=== PATIENT | male | born 1940 | race Caucasian/White ===

== ENCOUNTER 2019-12-16 13:57 | Outpatient (CLI) | payer OTHER ==
--- NOTE | 2019-12-16 14:39 | RAD ---
THREE VIEWS LUMBAR SPINE: HISTORY: Pain. FINDINGS: Lateral neutral, lateral extension and lateral flexion views demonstrate 5 lumbar-type vertebrae. Mul tilevel degenerative disc disease with loss of disc space height and osteophyte formation. No definite fracture. Vacuum disc phenomenon at L4-L5 and L5-S1. Atherosclerosis of the aorta is noted. Scattered air-fluid levels are identified. Correlate clinically for obstruction. Spondylolisthesis: L4-L5: Neutral 3.8 mm of anterolisthesis; extension 3.4 mm of anterolisthesis; flexion 6.8 mm of ante rolisthesis. L2-L3: Neutral 3.5 mm of retrolisthesis; extension 4.5 mm of retrolisthesis; flexion 4.1 mm of retrol isthesis. IMPRESSION: 1. Spondylolisthesis and degenerative changes as detailed above. 2. Scattered air-fluid levels. There is evidence of previous abdominal surgery. Correlate clinically for bowel obstruction with a supine and upright abdomen radiograph. CODE T Transcribed Date/Time: 12/16/2019 2:45 PM
== END 2019-12-16 13:58 | disposition home or self-care (01) ==
LOC: TBSIIMAG 13:57
PROVIDERS: ATTEND Neurological Surgery
DX: M51.26 Other intervertebral disc displacement, lumbar region (principal); M43.16 Spondylolisthesis, lumbar region; M47.816 Spondylosis without myelopathy or radiculopathy, lumbar region; Z98.890 Other specified postprocedural states
CPT/HCPCS: 72100

== ENCOUNTER 2020-12-09 09:05 | Outpatient (CLI) | payer OTHER | END 2020-12-09 09:06 | disposition home or self-care (01) | LOC: TBSIIMAG 09:05 | PROVIDERS: ATTEND Neurological Surgery | DX: M47.26 Other spondylosis with radiculopathy, lumbar region (principal); M43.16 Spondylolisthesis, lumbar region | CPT/HCPCS: 72100; 72148 ==

== ENCOUNTER 2021-01-04 11:00 | Inpatient (IN) | payer OTHER ==
[2021-01-06 12:07] VITALS: BMI 22.9
[2021-01-07] MEDS ORDERED: Thrombin 5000 UNITS/5 ML VIAL ONE ×2 (06:10→10:44)
[2021-01-07] MEDS ORDERED: EPINEPHrine 1 MG/ML AMP ONE (06:10)
[2021-01-07] MEDS ORDERED: Bupivacaine PF 0.5% 30 ML VIAL ONE (06:10)
[2021-01-07] MEDS ORDERED: Fentanyl 250 MCG/5 ML VIAL ONE (06:29)
[2021-01-07] MEDS ORDERED: Phenylephrine 10 MG/ML VIAL ONE (06:57)
[2021-01-07] MEDS ORDERED: Acetaminophen 325 MG TAB PO PRN (07:08)
[2021-01-07] MEDS ORDERED: tiZANidine HCl 4 MG TAB PO PRN (07:08)
[2021-01-07] MEDS ORDERED: diphenhydrAMINE 25 MG CAP PO PRN (07:08)
[2021-01-07] MEDS ORDERED: Morphine 2 MG/ML VIAL SLOW IVP PRN (07:08)
[2021-01-07] MEDS ORDERED: Promethazine HCl 25 MG/ML VIAL IM PRN ×2 (07:08→13:03)
[2021-01-07] MEDS ORDERED: Promethazine 25 MG TAB PO PRN (07:08)
[2021-01-07] MEDS ORDERED: Scopolamine 1.5 mg/72 hour Patch TD PRN (07:08)
[2021-01-07] MEDS ORDERED: traMADol HCl 50 MG TAB PO PRN (07:08)
[2021-01-07] MEDS ORDERED: Mag-Al 1200 mg/1200 mg/30 ML UDCUP PO PRN (07:08)
[2021-01-07] MEDS ORDERED: Tamsulosin HCl 0.4 MG CAP PO PRN (07:08)
[2021-01-07] MEDS ORDERED: Ondansetron ODT 8 MG TAB PO PRN (07:12)
[2021-01-07] MEDS ORDERED: Rocuronium Bromide 10 MG/ML (10ML VIAL) ONE (10:24)
[2021-01-07] MEDS ORDERED: ePHEDrine 50 MG/ML VIAL ONE (10:24)
[2021-01-07] MEDS ORDERED: Lidocaine 1% PF 5 ML VIAL ONE (10:24)
[2021-01-07] MEDS ORDERED: PROPOFOL 200 MG/20 ML VIAL ONE (10:24)
[2021-01-07] MEDS ORDERED: PHENYLEPHRINE-NS 100 MCG/ML 10 ML SYRINGE ONE (10:24)
[2021-01-07] MEDS ORDERED: Dexamethasone 20 MG/5 ML VIAL ONE (10:24)
[2021-01-07] MEDS ORDERED: Glycopyrrolate 0.2 MG/ML 5 ML SYRINGE ONE (10:24)
[2021-01-07 11:57] LABS: Hemoglobin 15.6 g/dL (14.0-18.0)
[2021-01-07] MEDS ORDERED: SUGAMMADEX SODIUM 500 MG/5 ML VIAL ONE (12:02)
[2021-01-07] MEDS ORDERED: Promethazine HCl 25 MG/ML VIAL SLOW IVP PRN (13:03)
[2021-01-07] MEDS ORDERED: Ondansetron HCl/PF 4 MG/2 ML Vial IVP PRN (13:03)
[2021-01-07] MEDS ORDERED: Fentanyl 100 MCG/2 ML VIAL ONE (13:17)
[2021-01-07] MEDS ORDERED: CEFAZOLIN 2 GM in Premix Bag 1 BAG IVPB SCH (15:00)
[2021-01-07] MEDS: DULoxetine 60 MG CAP PO SCH (17:24)
[2021-01-07] MEDS: Ferrous Sulfate 325 MG TAB PO SCH ×2 (17:24→21:13)
[2021-01-07] MEDS: Potassium Chloride 20 MEQ TAB PO SCH (17:25)
[2021-01-07] MEDS: Terbinafine 250 MG TAB PO SCH (17:25)
[2021-01-07] MEDS: CEFAZOLIN 2 GM in Premix Bag 1 BAG IVPB SCH ×2 (17:32→23:37)
[2021-01-07] MEDS: Sodium Chloride 0.9% 1,000 ML IV SCH ×2 (17:33→21:14)
[2021-01-07] MEDS: Mometasone 100 MCG/Formoterol 5 MCG 120 PUFF INHALER INH SCH (19:34)
[2021-01-07] MEDS: Atorvastatin Calcium 20 MG TAB PO SCH (21:14)
[2021-01-07] MEDS: diphenhydrAMINE 25 MG CAP PO SCH (21:14)
[2021-01-07] MEDS: HYDROcodone/Acetaminophen 5/325 mg Tablet PO PRN (23:40)
[2021-01-08 06:05] LABS: Hemoglobin 11.8 g/dL (14.0-18.0); Mean Corpuscular HGB CONC 33.3 g/dL (32.0-36.0); Mean Corpuscular Hemoglobin 29.7 pg (27.0-31.0); Mean Corpuscular Volume 89.3 fL (78.0-98.0); Mean Platelet Volume 8.2 fL (7.4-10.4); Platelet Count 236 thou/uL (130-400); RBC Distribution Width 12.5 % (11.5-14.5); Red Blood Cell (RBC) Count 3.96 mill/uL (4.70-6.10); White Blood Cell (WBC) Count 16.2 thou/uL (4.8-10.8)
[2021-01-08] MEDS: HYDROcodone/Acetaminophen 5/325 mg Tablet PO PRN (06:19)
[2021-01-08 06:49] LABS: Anion Gap 13 mmol/L (10-20); BUN (Urea Nitrogen) 16 mg/dL (8.4-25.7); Calc. Creatinine Clearance 52 mL/min (70-130); Calcium 7.9 mg/dL (7.8-10.44); Carbon Dioxide 26 mmol/L (23-31); Chloride 101 mmol/L (98-107); Glucose 114 mg/dL (83-110); Sodium 135 mmol/L (136-145)
[2021-01-08] MEDS: Mometasone 100 MCG/Formoterol 5 MCG 120 PUFF INHALER INH SCH ×2 (08:09→19:32)
[2021-01-08] MEDS: DULoxetine 60 MG CAP PO SCH (08:27)
[2021-01-08] MEDS: Terbinafine 250 MG TAB PO SCH (08:27)
[2021-01-08] MEDS: Ferrous Sulfate 325 MG TAB PO SCH ×2 (08:27→21:27)
[2021-01-08] MEDS: Potassium Chloride 20 MEQ TAB PO SCH (08:28)
[2021-01-08] MEDS: Sodium Chloride 0.9% 1,000 ML IV SCH ×2 (12:49→20:35)
[2021-01-08] MEDS ORDERED: CEFAZOLIN 2 GM in Premix Bag 1 BAG IVPB SCH (18:00)
[2021-01-08] MEDS: Atorvastatin Calcium 20 MG TAB PO SCH (21:26)
[2021-01-08] MEDS: diphenhydrAMINE 25 MG CAP PO SCH ×2 (21:26→22:23)
[2021-01-09 05:30] LABS: #Eosinphils 0.2 thou/uL (0.0-0.7); #Lymphocytes 1.6 thou/uL (1.20-3.40); #Monocytes 0.7 thou/uL (0.11-0.59); #Neutrophils 7.1 thou/uL (1.40-6.50); %Basophils 0.2 % (0.0-1.0); %Eosinophils 2.5 % (0.0-10.0); %Lymphocytes 16.3 % (21.0-51.0); %Monocytes 7.3 % (0.0-10.0); %Neutrophils 73.7 % (42.0-75.0); Hemoglobin 9.8 g/dL (14.0-18.0); Mean Corpuscular HGB CONC 33.7 g/dL (32.0-36.0); Mean Corpuscular Hemoglobin 30.3 pg (27.0-31.0); Mean Corpuscular Volume 90.1 fL (78.0-98.0); Mean Platelet Volume 8.2 fL (7.4-10.4); Platelet Count 145 thou/uL (130-400); RBC Distribution Width 12.1 % (11.5-14.5); Red Blood Cell (RBC) Count 3.24 mill/uL (4.70-6.10); White Blood Cell (WBC) Count 9.7 thou/uL (4.8-10.8)
[2021-01-09 05:49] LABS: Anion Gap 10 mmol/L (10-20); BUN (Urea Nitrogen) 13 mg/dL (8.4-25.7); Calc. Creatinine Clearance 74 mL/min (70-130); Calcium 7.8 mg/dL (7.8-10.44); Carbon Dioxide 27 mmol/L (23-31); Chloride 103 mmol/L (98-107); Glucose 113 mg/dL (83-110); Sodium 136 mmol/L (136-145)
[2021-01-09] MEDS: Mometasone 100 MCG/Formoterol 5 MCG 120 PUFF INHALER INH SCH ×2 (07:22→20:03)
[2021-01-09] MEDS: DULoxetine 60 MG CAP PO SCH (08:29)
[2021-01-09] MEDS: Terbinafine 250 MG TAB PO SCH (08:29)
[2021-01-09] MEDS: Ferrous Sulfate 325 MG TAB PO SCH ×2 (08:29→21:53)
[2021-01-09] MEDS: Potassium Chloride 20 MEQ TAB PO SCH (08:29)
[2021-01-09] MEDS: Sodium Chloride 0.9% 1,000 ML IV SCH (14:38)
[2021-01-09] MEDS: Atorvastatin Calcium 20 MG TAB PO SCH (21:52)
[2021-01-09] MEDS: diphenhydrAMINE 25 MG CAP PO SCH (21:53)
[2021-01-10] MEDS: Sodium Chloride 0.9% 1,000 ML IV SCH ×2 (00:14→15:15)
[2021-01-10] MEDS: Mometasone 100 MCG/Formoterol 5 MCG 120 PUFF INHALER INH SCH ×2 (07:07→19:45)
[2021-01-10] MEDS: Ferrous Sulfate 325 MG TAB PO SCH ×2 (08:07→20:24)
[2021-01-10] MEDS: Terbinafine 250 MG TAB PO SCH (08:07)
[2021-01-10] MEDS: DULoxetine 60 MG CAP PO SCH (08:07)
[2021-01-10] MEDS: Potassium Chloride 20 MEQ TAB PO SCH (08:08)
[2021-01-10] MEDS: Atorvastatin Calcium 20 MG TAB PO SCH (20:24)
[2021-01-10] MEDS: diphenhydrAMINE 25 MG CAP PO SCH (20:24)
[2021-01-11] MEDS: Sodium Chloride 0.9% 1,000 ML IV SCH (05:43)
[2021-01-11 06:00] LABS: #Eosinphils 0.4 thou/uL (0.0-0.7); #Lymphocytes 1.5 thou/uL (1.20-3.40); #Monocytes 0.6 thou/uL (0.11-0.59); #Neutrophils 6.2 thou/uL (1.40-6.50); %Basophils 0.2 % (0.0-1.0); %Eosinophils 4.8 % (0.0-10.0); %Lymphocytes 16.8 % (21.0-51.0); %Monocytes 7.3 % (0.0-10.0); %Neutrophils 70.9 % (42.0-75.0); Hemoglobin 10.3 g/dL (14.0-18.0); Mean Corpuscular HGB CONC 33.8 g/dL (32.0-36.0); Mean Corpuscular Hemoglobin 30.5 pg (27.0-31.0); Mean Corpuscular Volume 90.3 fL (78.0-98.0); Mean Platelet Volume 8.2 fL (7.4-10.4); Platelet Count 228 thou/uL (130-400); RBC Distribution Width 12.1 % (11.5-14.5); Red Blood Cell (RBC) Count 3.37 mill/uL (4.70-6.10); White Blood Cell (WBC) Count 8.8 thou/uL (4.8-10.8)
[2021-01-11 06:30] LABS: Anion Gap 11 mmol/L (10-20); BUN (Urea Nitrogen) 8 mg/dL (8.4-25.7); Calc. Creatinine Clearance 82 mL/min (70-130); Calcium 8.2 mg/dL (7.8-10.44); Carbon Dioxide 28 mmol/L (23-31); Chloride 101 mmol/L (98-107); Glucose 101 mg/dL (83-110); Potassium 3.9 mmol/L (3.5-5.1); Sodium 136 mmol/L (136-145)
[2021-01-11] MEDS: Mometasone 100 MCG/Formoterol 5 MCG 120 PUFF INHALER INH SCH ×2 (07:01→18:30)
[2021-01-11] MEDS: Potassium Chloride 20 MEQ TAB PO SCH (08:16)
[2021-01-11] MEDS: Ferrous Sulfate 325 MG TAB PO SCH ×2 (08:16→19:48)
[2021-01-11] MEDS: DULoxetine 60 MG CAP PO SCH (08:16)
[2021-01-11] MEDS: Terbinafine 250 MG TAB PO SCH (08:17)
[2021-01-11] MEDS: Atorvastatin Calcium 20 MG TAB PO SCH (19:48)
[2021-01-11] MEDS: diphenhydrAMINE 25 MG CAP PO SCH (19:48)
[2021-01-12] MEDS: Mometasone 100 MCG/Formoterol 5 MCG 120 PUFF INHALER INH SCH ×2 (06:41→18:12)
[2021-01-12] MEDS: DULoxetine 60 MG CAP PO SCH (09:03)
[2021-01-12] MEDS: Potassium Chloride 20 MEQ TAB PO SCH (09:03)
[2021-01-12] MEDS: Terbinafine 250 MG TAB PO SCH (09:03)
[2021-01-12] MEDS: Ferrous Sulfate 325 MG TAB PO SCH ×2 (09:03→20:13)
[2021-01-12] MEDS: Atorvastatin Calcium 20 MG TAB PO SCH (20:13)
[2021-01-12] MEDS: diphenhydrAMINE 25 MG CAP PO SCH (20:14)
[2021-01-13] MEDS: Mometasone 100 MCG/Formoterol 5 MCG 120 PUFF INHALER INH SCH ×2 (07:10→18:30)
[2021-01-13] MEDS: Potassium Chloride 20 MEQ TAB PO SCH (08:57)
[2021-01-13] MEDS: Ferrous Sulfate 325 MG TAB PO SCH ×2 (08:58→20:07)
[2021-01-13] MEDS: DULoxetine 60 MG CAP PO SCH (08:58)
[2021-01-13] MEDS: Terbinafine 250 MG TAB PO SCH (08:58)
[2021-01-13] MEDS: Atorvastatin Calcium 20 MG TAB PO SCH (20:07)
[2021-01-13] MEDS: diphenhydrAMINE 25 MG CAP PO SCH (20:07)
[2021-01-14 06:21] LABS: Hemoglobin 10.9 g/dL (14.0-18.0)
[2021-01-14 07:51] VITALS: BP 104/70; TEMP 97.8
[2021-01-14] MEDS: DULoxetine 60 MG CAP PO SCH (08:16)
[2021-01-14] MEDS: Potassium Chloride 20 MEQ TAB PO SCH (08:16)
[2021-01-14] MEDS: Terbinafine 250 MG TAB PO SCH (08:16)
[2021-01-14] MEDS: Ferrous Sulfate 325 MG TAB PO SCH (08:17)
[2021-01-14] MEDS: Mometasone 100 MCG/Formoterol 5 MCG 120 PUFF INHALER INH SCH (08:51)
== END 2021-01-14 09:30 | disposition home or self-care (01) | DRG 455 ==
LOC: SURG A 01-07 05:33 → SURG B 01-07 16:19
PROVIDERS: ADMIT Neurological Surgery; ATTEND Internal Medicine
PROC: 0SG00AJ Fusion of Lumbar Vertebral Joint with Interbody Fusion Device, Posterior Approach, Anterior Column, Open Approach (ICD-10-PCS; principal; 2021-01-07)
PROC: 0SG0071 Fusion of Lumbar Vertebral Joint with Autologous Tissue Substitute, Posterior Approach, Posterior Column, Open Approach (ICD-10-PCS; 2021-01-07)
PROC: 0SG30AJ Fusion of Lumbosacral Joint with Interbody Fusion Device, Posterior Approach, Anterior Column, Open Approach (ICD-10-PCS; 2021-01-07)
PROC: 0SG3071 Fusion of Lumbosacral Joint with Autologous Tissue Substitute, Posterior Approach, Posterior Column, Open Approach (ICD-10-PCS; 2021-01-07)
PROC: 01NB0ZZ Release Lumbar Nerve, Open Approach (ICD-10-PCS; 2021-01-07)
PROC: 01NR0ZZ Release Sacral Nerve, Open Approach (ICD-10-PCS; 2021-01-07)
PROC: 0SB20ZZ Excision of Lumbar Vertebral Disc, Open Approach (ICD-10-PCS; 2021-01-07)
PROC: 0SB40ZZ Excision of Lumbosacral Disc, Open Approach (ICD-10-PCS; 2021-01-07)
DX: M48.061 Spinal stenosis, lumbar region without neurogenic claudication (principal); M43.16 Spondylolisthesis, lumbar region; M19.90 Unspecified osteoarthritis, unspecified site; G89.29 Other chronic pain; I25.10 Atherosclerotic heart disease of native coronary artery without angina pectoris; I10 Essential (primary) hypertension; J44.9 Chronic obstructive pulmonary disease, unspecified; D72.829 Elevated white blood cell count, unspecified; E78.5 Hyperlipidemia, unspecified; K22.70 Barrett's esophagus without dysplasia; G60.3 Idiopathic progressive neuropathy; K21.9 Gastro-esophageal reflux disease without esophagitis; M99.13 Subluxation complex (vertebral) of lumbar region; Z90.49 Acquired absence of other specified parts of digestive tract; Z95.1 Presence of aortocoronary bypass graft; Z79.899 Other long term (current) drug therapy; I25.2 Old myocardial infarction
CPT/HCPCS: 36415; 76000; 80048; 85014; 85018; 85025; 85027; 86850; 86900; 86901; C1713; C1768; J0171; J0690; J1100; J2270; J2370; J2704; J3010; J3370; J3490; Q0163; Q0169; S0020

== ENCOUNTER 2021-02-21 09:51 | Outpatient (CLI) | payer OTHER | END 2021-02-21 09:52 | disposition home or self-care (01) | LOC: TBSIIMAG 09:51 | PROVIDERS: ATTEND Neurological Surgery | DX: M48.061 Spinal stenosis, lumbar region without neurogenic claudication (principal); Z98.1 Arthrodesis status; Z98.890 Other specified postprocedural states | CPT/HCPCS: 72100 ==

== ENCOUNTER 2021-03-12 11:08 | Inpatient (IN) | payer OTHER ==
[~2021-03-12 11:08] MED LIST: Iopamidol-370 76% 500 ML 1 ML ONE
[2021-03-12 12:35] LABS: #Eosinphils 0.2 thou/uL (0.0-0.7); #Lymphocytes 2.3 thou/uL (1.20-3.40); #Monocytes 0.8 thou/uL (0.11-0.59); #Neutrophils 10.2 thou/uL (1.40-6.50); %Basophils 0.3 % (0.0-1.0); %Eosinophils 1.5 % (0.0-10.0); %Lymphocytes 16.8 % (21.0-51.0); %Monocytes 5.8 % (0.0-10.0); %Neutrophils 75.5 % (42.0-75.0); Mean Corpuscular Hemoglobin 29.3 pg (27.0-31.0); Mean Corpuscular Volume 88.9 fL (78.0-98.0); Mean Platelet Volume 8.5 fL (7.4-10.4); Platelet Count 295 thou/uL (130-400); RBC Distribution Width 12.4 % (11.5-14.5); White Blood Cell (WBC) Count 13.5 thou/uL (4.8-10.8)
[2021-03-12 13:01] LABS: ALT (SGPT) 9 U/L (8-55); AST (SGOT) 17 U/L (5-34); Albumin 3.1 g/dL (3.4-4.8); Alkaline Phosphatase 67 U/L (40-110); Anion Gap 16 mmol/L (10-20); BUN (Urea Nitrogen) 47 mg/dL (8.4-25.7); Bilirubin, Total 0.3 mg/dL (0.2-1.2); Calc. Creatinine Clearance 0 mL/min (70-130); Carbon Dioxide 24 mmol/L (23-31); Chloride 108 mmol/L (98-107); Globulin 2.3 g/dL (2.4-3.5); Glucose 88 mg/dL (83-110); Lipase 14 U/L (8-78); Protein, Total 5.4 g/dL (5.8-8.1); Sodium 144 mmol/L (136-145)
[2021-03-12 14:58] LABS: SARS-CoV-2 NAA Rapid Test Not Detected (NotDetected)
[2021-03-12] MEDS ORDERED: Phenylephrine 10 MG/ML VIAL ONE (15:18)
[2021-03-12] MEDS ORDERED: Fentanyl 100 MCG/2 ML VIAL ONE (15:18)
[2021-03-12] MEDS ORDERED: Succinylcholine 200 MG/10 ml SYRINGE FS ONE (15:31)
[2021-03-12] MEDS ORDERED: PHENYLEPHRINE-NS 100 MCG/ML 10 ML SYRINGE ONE (15:31)
[2021-03-12] MEDS ORDERED: Dexamethasone 20 MG/5 ML VIAL ONE (15:31)
[2021-03-12] MEDS ORDERED: PROPOFOL 200 MG/20 ML VIAL ONE (15:31)
[2021-03-12] MEDS ORDERED: Lidocaine 1% PF 5 ML VIAL ONE (15:31)
[2021-03-12] MEDS ORDERED: Rocuronium Bromide 10 MG/ML (10ML VIAL) ONE (15:31)
[2021-03-12] MEDS ORDERED: Ondansetron PF 4 MG/2 ML Vial ONE (15:31)
[2021-03-12] MEDS ORDERED: Promethazine HCl 25 MG/ML VIAL SLOW IVP PRN (16:39)
[2021-03-12] MEDS ORDERED: Promethazine HCl 25 MG/ML VIAL IM PRN (16:39)
[2021-03-12] MEDS ORDERED: Ondansetron HCl/PF 4 MG/2 ML Vial IVP PRN (16:39)
[2021-03-12] MEDS ORDERED: Labetalol HCl 100 MG/20 ML VIAL ONE (16:40)
[2021-03-12] MEDS ORDERED: Labetalol HCl 100 MG/20 ML VIAL SLOW IVP PRN (16:41)
[2021-03-12] MEDS ORDERED: SUGAMMADEX SODIUM 200 MG/2 ML VIAL ONE (16:45)
[2021-03-12 22:14] VITALS: BMI 24.3
[2021-03-13] MEDS: Pantoprazole 40 MG VIAL IVP SCH ×3 (01:23→20:40)
[2021-03-13 05:49] LABS: #Lymphocytes 1.7 thou/uL (1.20-3.40); #Monocytes 0.5 thou/uL (0.11-0.59); #Neutrophils 7.2 thou/uL (1.40-6.50); %Basophils 0.3 % (0.0-1.0); %Eosinophils 0.3 % (0.0-10.0); %Lymphocytes 18.2 % (21.0-51.0); %Monocytes 5.2 % (0.0-10.0); %Neutrophils 76.1 % (42.0-75.0); Hemoglobin 11.2 g/dL (14.0-18.0); Mean Corpuscular HGB CONC 33.6 g/dL (32.0-36.0); Mean Corpuscular Hemoglobin 29.8 pg (27.0-31.0); Mean Corpuscular Volume 88.6 fL (78.0-98.0); Mean Platelet Volume 8.5 fL (7.4-10.4); Platelet Count 298 thou/uL (130-400); RBC Distribution Width 12.6 % (11.5-14.5); Red Blood Cell (RBC) Count 3.77 mill/uL (4.70-6.10); White Blood Cell (WBC) Count 9.4 thou/uL (4.8-10.8)
[2021-03-13 06:09] LABS: Anion Gap 13 mmol/L (10-20); BUN (Urea Nitrogen) 30 mg/dL (8.4-25.7); Calc. Creatinine Clearance 74 mL/min (70-130); Calcium 7.8 mg/dL (7.8-10.44); Carbon Dioxide 21 mmol/L (23-31); Chloride 110 mmol/L (98-107); Glucose 98 mg/dL (83-110); Sodium 140 mmol/L (136-145)
[2021-03-13] MEDS: DULoxetine 60 MG CAP PO SCH (08:18)
[2021-03-13] MEDS: Ferrous Sulfate 325 MG TAB PO SCH ×2 (08:18→16:55)
[2021-03-13] MEDS: Multivitamin W/ Minerals 1 TAB PO SCH (08:18)
[2021-03-13] MEDS: Terbinafine 250 MG TAB PO SCH (08:18)
[2021-03-13] MEDS ORDERED: Atorvastatin Calcium 20 MG TAB PO SCH (21:00)
[2021-03-14 07:51] LABS: #Basophils 0.1 thou/uL (0.0-0.2); #Eosinphils 0.5 thou/uL (0.0-0.7); #Lymphocytes 2.7 thou/uL (1.20-3.40); #Monocytes 0.7 thou/uL (0.11-0.59); %Basophils 0.9 % (0.0-1.0); %Eosinophils 5.5 % (0.0-10.0); %Lymphocytes 27.1 % (21.0-51.0); %Monocytes 6.6 % (0.0-10.0); Hemoglobin 11.6 g/dL (14.0-18.0); Mean Corpuscular HGB CONC 32.5 g/dL (32.0-36.0); Mean Corpuscular Hemoglobin 28.9 pg (27.0-31.0); Mean Corpuscular Volume 88.9 fL (78.0-98.0); Mean Platelet Volume 8.2 fL (7.4-10.4); Platelet Count 298 thou/uL (130-400); RBC Distribution Width 12.7 % (11.5-14.5); Red Blood Cell (RBC) Count 4.02 mill/uL (4.70-6.10)
[2021-03-14 08:09] LABS: Anion Gap 11 mmol/L (10-20); BUN (Urea Nitrogen) 14 mg/dL (8.4-25.7); Calc. Creatinine Clearance 78 mL/min (70-130); Carbon Dioxide 25 mmol/L (23-31); Chloride 108 mmol/L (98-107); Glucose 86 mg/dL (83-110); Potassium 4.2 mmol/L (3.5-5.1); Sodium 140 mmol/L (136-145)
[2021-03-14] MEDS: Ferrous Sulfate 325 MG TAB PO SCH (08:58)
[2021-03-14] MEDS: DULoxetine 60 MG CAP PO SCH (08:59)
[2021-03-14] MEDS: Terbinafine 250 MG TAB PO SCH (08:59)
[2021-03-14] MEDS: Multivitamin W/ Minerals 1 TAB PO SCH (08:59)
[2021-03-14 12:52] VITALS: BP 138/75; TEMP 97.6
== END 2021-03-14 15:10 | disposition home or self-care (01) | DRG 381 ==
LOC: ERS 11:08 → SDC 15:27 → 2NO 17:17
PROVIDERS: ADMIT Family Medicine; ATTEND Internal Medicine
PROC: 0D798ZZ Dilation of Duodenum, Via Natural or Artificial Opening Endoscopic (ICD-10-PCS; principal; 2021-03-12)
PROC: 0DB58ZX Excision of Esophagus, Via Natural or Artificial Opening Endoscopic, Diagnostic (ICD-10-PCS; 2021-03-12)
DX: K22.11 Ulcer of esophagus with bleeding (principal); D62 Acute posthemorrhagic anemia; K31.5 Obstruction of duodenum; K25.3 Acute gastric ulcer without hemorrhage or perforation; Z20.822 Contact with and (suspected) exposure to COVID-19; I25.10 Atherosclerotic heart disease of native coronary artery without angina pectoris; E78.5 Hyperlipidemia, unspecified; M54.5 Low back pain; K21.9 Gastro-esophageal reflux disease without esophagitis; G89.29 Other chronic pain; I25.2 Old myocardial infarction; Z98.84 Bariatric surgery status; Z90.49 Acquired absence of other specified parts of digestive tract; Z95.1 Presence of aortocoronary bypass graft; Z79.899 Other long term (current) drug therapy
CPT/HCPCS: 36415; 74177; 78278; 80048; 83690; 85025; 86850; 86900; 86901; 88305; 93005; A9604; C9113; J1100; J2370; J2405; J2704; J3010; Q9967; U0002

== ENCOUNTER 2021-06-01 04:12 | Inpatient (IN) | payer OTHER ==
[2021-06-01] MEDS ORDERED: Lidocaine Viscous Sol 2% 15 ml UD Cup ONE (05:36)
[2021-06-01] MEDS ORDERED: Mag-Al 1200 mg/1200 mg/30 ML UDCUP ONE (05:36)
[2021-06-01] MEDS ORDERED: Acetaminophen 500 MG TAB ONE (06:15)
[2021-06-01 06:56] LABS: ALT (SGPT) 11 U/L (8-55); AST (SGOT) 20 U/L (5-34); Albumin 3.5 g/dL (3.4-4.8); Alkaline Phosphatase 101 U/L (40-110); Anion Gap 16 mmol/L (10-20); BUN (Urea Nitrogen) 13 mg/dL (8.4-25.7); Bilirubin, Total 0.6 mg/dL (0.2-1.2); Calc. Creatinine Clearance 0 mL/min (70-130); Calcium 12.9 mg/dL (7.8-10.44); Carbon Dioxide 31 mmol/L (23-31); Chloride 94 mmol/L (98-107); Globulin 3.2 g/dL (2.4-3.5); Glucose 123 mg/dL (83-110); Protein, Total 6.7 g/dL (5.8-8.1); Sodium 137 mmol/L (136-145)
[2021-06-01 07:05] LABS: #Basophils 0.1 thou/uL (0.0-0.2); #Eosinphils 0.5 thou/uL (0.0-0.7); #Lymphocytes 1.9 thou/uL (1.20-3.40); #Monocytes 1.1 thou/uL (0.11-0.59); %Basophils 0.6 % (0.0-1.0); %Eosinophils 3.7 % (0.0-10.0); %Lymphocytes 13.3 % (21.0-51.0); %Monocytes 7.5 % (0.0-10.0); Hemoglobin 15.1 g/dL (14.0-18.0); Mean Corpuscular HGB CONC 32.6 g/dL (32.0-36.0); Mean Corpuscular Hemoglobin 28.2 pg (27.0-31.0); Mean Corpuscular Volume 86.5 fL (78.0-98.0); Mean Platelet Volume 8.3 fL (7.4-10.4); Platelet Count 489 thou/uL (130-400); RBC Distribution Width 13.5 % (11.5-14.5); Red Blood Cell (RBC) Count 5.37 mill/uL (4.70-6.10); White Blood Cell (WBC) Count 14.6 thou/uL (4.8-10.8)
[2021-06-01] MEDS ORDERED: Morphine 4 MG/ML VIAL ONE (07:49)
[2021-06-01] MEDS ORDERED: Iopamidol-370 76% 500 ML 1 ML ONE (09:03)
[2021-06-01] MEDS ORDERED: Acetaminophen 325 MG TAB PO PRN (10:44)
[2021-06-01] MEDS ORDERED: Ondansetron PF 4 MG/2 ML Vial IVP PRN (10:44)
[2021-06-01] MEDS ORDERED: Ondansetron ODT 4 MG TAB PO PRN (10:44)
[2021-06-01] MEDS ORDERED: Sodium Chloride 0.9% 1,000 ML IV SCH (10:45)
[2021-06-01] MEDS ORDERED: Morphine 2 MG/ML VIAL SLOW IVP PRN (11:01)
[2021-06-01 11:36] LABS: Magnesium 1.6 mg/dL (1.6-2.6); Phosphorus 5.2 mg/dL (2.3-4.7)
[2021-06-01 11:39] VITALS: BMI 22.4
[2021-06-01] MEDS ORDERED: Magnesium 2 GM/50 ML 2 GM in Premix Bag 1 BAG IVPB SCH (11:45)
[2021-06-01 14:44] LABS: Bacteria/HPF None Seen HPF (None Seen); Bilirubin Negative (Negative); Blood, Urine Negative (Negative); Clarity Clear (Clear); Glucose, Urine (Dipstick) Normal (Negative); Ketone, Urine Negative (Negative); Leukocyte Negative Leu/uL (Negative); Nitrite Negative (Negative); Protein, Urine (Dipstick) Negative (Neg-Trace); RBC/HPF None Seen HPF (0-3); Specific Gravity, Urine 1.034 (1.002-1.036); Squamous Epithelial None Seen HPF (0-3); Urobilinogen Normal mg/dL (Less than 2); WBC/HPF 0-3 HPF (0-3)
[2021-06-01] MEDS ORDERED: Zoledronic Acid 4 MG in Sodium Chloride 0.9% 100 ML IVPB SCH (19:00)
[2021-06-01] MEDS: Sodium Chloride 0.9% 1,000 ML IV SCH ×2 (19:42→20:09)
[2021-06-01] MEDS: Pantoprazole 40 MG VIAL IVP SCH (20:02)
[2021-06-02] MEDS: Sodium Chloride 0.9% 1,000 ML IV SCH (05:45)
[2021-06-02 06:45] LABS: #Eosinphils 0.6 thou/uL (0.0-0.7); #Lymphocytes 1.3 thou/uL (1.20-3.40); #Monocytes 0.5 thou/uL (0.11-0.59); %Basophils 0.2 % (0.0-1.0); %Eosinophils 5.5 % (0.0-10.0); %Lymphocytes 12.4 % (21.0-51.0); %Monocytes 4.7 % (0.0-10.0); %Neutrophils 77.2 % (42.0-75.0); Mean Corpuscular HGB CONC 32.6 g/dL (32.0-36.0); Mean Corpuscular Hemoglobin 28.8 pg (27.0-31.0); Mean Corpuscular Volume 88.4 fL (78.0-98.0); Mean Platelet Volume 7.7 fL (7.4-10.4); Platelet Count 353 thou/uL (130-400); RBC Distribution Width 13.3 % (11.5-14.5); Red Blood Cell (RBC) Count 4.51 mill/uL (4.70-6.10); White Blood Cell (WBC) Count 10.4 thou/uL (4.8-10.8)
[2021-06-02 07:07] LABS: Anion Gap 12 mmol/L (10-20); BUN (Urea Nitrogen) 11 mg/dL (8.4-25.7); Calc. Creatinine Clearance 57 mL/min (70-130); Calcium 8.8 mg/dL (7.8-10.44); Carbon Dioxide 25 mmol/L (23-31); Chloride 105 mmol/L (98-107); Glucose 90 mg/dL (83-110); Magnesium 1.6 mg/dL (1.6-2.6); Potassium 4.1 mmol/L (3.5-5.1); Sodium 138 mmol/L (136-145)
[2021-06-02 07:12] LABS: Phosphorus 3.4 mg/dL (2.3-4.7)
[2021-06-02] MEDS ORDERED: Sodium Chloride 0.9% 1,000 ML IV SCH (07:35)
[2021-06-02 08:37] LABS: Reference Lab Name LABCORP
[2021-06-02] MEDS: Pantoprazole 40 MG VIAL IVP SCH (09:02)
[2021-06-02] MEDS ORDERED: diphenhydrAMINE 25 MG CAP PO PRN (09:15)
[2021-06-02] MEDS ORDERED: HYDROcodone/Acetaminophen 5/325 mg Tablet PO PRN (09:15)
[2021-06-02] MEDS ORDERED: Clopidogrel Bisulfate 75 MG TAB PO SCH (10:00)
[2021-06-02] MEDS ORDERED: Magnesium Sulfate 4 GM in Sodium Chloride 0.9% 250 ML 250 ML IVPB SCH (10:00)
[2021-06-02] MEDS ORDERED: Fentanyl 100 MCG/2 ML VIAL SLOW IVP PRN (11:26)
[2021-06-02 12:07] VITALS: TEMP 98.6
[2021-06-02 16:50] VITALS: BP 134/68
[2021-06-03] MEDS ORDERED: Clopidogrel Bisulfate 75 MG TAB PO SCH (09:00)
== END 2021-06-02 17:24 | disposition home or self-care (01) | DRG 392 ==
LOC: ERS 04:12 → ERHOLD 09:35 → T4-A 11:06 → OBSVTOIN 18:47
PROVIDERS: ADMIT Emergency Medicine; ATTEND Internal Medicine
DX: R10.33 Periumbilical pain (principal); I25.810 Atherosclerosis of coronary artery bypass graft(s) without angina pectoris; K21.9 Gastro-esophageal reflux disease without esophagitis; I10 Essential (primary) hypertension; M19.90 Unspecified osteoarthritis, unspecified site; K44.9 Diaphragmatic hernia without obstruction or gangrene; E78.5 Hyperlipidemia, unspecified; E83.52 Hypercalcemia; E83.42 Hypomagnesemia; G89.29 Other chronic pain; M54.9 Dorsalgia, unspecified; Z95.1 Presence of aortocoronary bypass graft; Z95.5 Presence of coronary angioplasty implant and graft; Z98.84 Bariatric surgery status; Z88.8 Allergy status to other drugs, medicaments and biological substances; Z79.899 Other long term (current) drug therapy; Z90.49 Acquired absence of other specified parts of digestive tract; I25.2 Old myocardial infarction
CPT/HCPCS: 36415; 71045; 71260; 74177; 80048; 80053; 82164; 82306; 82652; 83690; 83735; 83970; 84100; 84443; 84484; 85025; 93005; 96365; 96374; 96375; C9113; G0378; J2270; J3010; J3475; J3489; J3490; J7050; Q9967

== ENCOUNTER 2021-09-26 13:10 | Outpatient (CLI) | payer OTHER ==
[~2021-09-26 13:10] MED LIST changes: -Iopamidol-370 76% 500 ML 1 ML ONE; +Magnevist 469MG/ML 20 ML VIAL ONE
== END 2021-09-26 13:11 | disposition home or self-care (01) ==
LOC: TBSIIMAG 13:10
PROVIDERS: ATTEND Neurological Surgery
DX: M48.062 Spinal stenosis, lumbar region with neurogenic claudication (principal); M47.816 Spondylosis without myelopathy or radiculopathy, lumbar region; Z98.890 Other specified postprocedural states
CPT/HCPCS: 72100; 72148; 72158; 82565

== ENCOUNTER 2021-12-06 12:34 | Outpatient (CLI) | payer OTHER ==
[2021-12-06 13:55] LABS: Hemoglobin 14.5 g/dL (13.5-17.5); Mean Corpuscular HGB CONC 31.3 g/dL (32.0-36.0); Mean Corpuscular Hemoglobin 27.7 pg (27.0-33.0); Mean Corpuscular Volume 88.7 fl (81.2-95.1); Mean Platelet Volume 10.3 fl (7.4-10.4); Platelet Count 427 10x3/uL (150-450); RBC Distribution Width 14.2 % (11.5-14.5); Red Blood Cell (RBC) Count 5.23 10x6/uL (4.32-5.72)
[2021-12-06 14:18] LABS: PTT 28.6 sec (22.0-33.0); Prothrombin Time 11.5 sec (9.5-12.1)
[2021-12-06 14:21] LABS: Anion Gap 14 mmol/L (10-20); BUN (Urea Nitrogen) 14 mg/dL (8.4-25.7); Calc. Creatinine Clearance 0 mL/min (70-130); Calcium 8.7 mg/dL (7.8-10.44); Carbon Dioxide 28 mmol/L (23-31); Chloride 100 mmol/L (98-107); Glucose 118 mg/dL (83-110); Potassium 4.4 mmol/L (3.5-5.1); Sodium 138 mmol/L (136-145)
[2021-12-07 12:47] LABS: SARS-CoV-2 PCR by NAA Not Detected (NotDetected)
== END 2021-12-06 12:35 | disposition home or self-care (01) ==
LOC: LABBT 12:34
PROVIDERS: ATTEND Neurological Surgery
DX: Z01.818 Encounter for other preprocedural examination (principal); M48.061 Spinal stenosis, lumbar region without neurogenic claudication; M51.26 Other intervertebral disc displacement, lumbar region; Z20.822 Contact with and (suspected) exposure to COVID-19
CPT/HCPCS: 80048; 85027; 85610; 85730; 86850; 86900; 86901; 93005; 93010; U0003; U0005

== ENCOUNTER 2021-12-06 13:15 | Inpatient (IN) | payer OTHER ==
[2021-12-06 13:55] LABS: Hemoglobin 14.5 g/dL (13.5-17.5); Mean Corpuscular HGB CONC 31.3 g/dL (32.0-36.0); Mean Corpuscular Hemoglobin 27.7 pg (27.0-33.0); Mean Corpuscular Volume 88.7 fl (81.2-95.1); Mean Platelet Volume 10.3 fl (7.4-10.4); Platelet Count 427 10x3/uL (150-450); RBC Distribution Width 14.2 % (11.5-14.5); Red Blood Cell (RBC) Count 5.23 10x6/uL (4.32-5.72)
[2021-12-06 14:18] LABS: PTT 28.6 sec (22.0-33.0); Prothrombin Time 11.5 sec (9.5-12.1)
[2021-12-06 16:31] VITALS: BMI 22.9
[2021-12-07 12:47] LABS: SARS-CoV-2 PCR by NAA Not Detected (NotDetected)
[2021-12-09] MEDS ORDERED: Lidocaine 1% MPF 2 ML VIAL ONE (05:53)
[2021-12-09] MEDS ORDERED: ceFAZolin 2 GM/Dextrose 50 ML IVPB ONE (05:53)
[2021-12-09] MEDS ORDERED: Thrombin 5000 UNITS/5 ML VIAL ONE (06:12)
[2021-12-09] MEDS ORDERED: EPINEPHrine 1 MG/ML AMP ONE (06:12)
[2021-12-09] MEDS ORDERED: Neomycin-Polymyxin 1 ML AMP ONE (06:12)
[2021-12-09] MEDS ORDERED: Bupivacaine PF 0.5% 30 ML VIAL ONE (06:12)
[2021-12-09] MEDS ORDERED: Albumin 5% 500 ML ONE (06:38)
[2021-12-09] MEDS ORDERED: Dexmedetomidine 200 MCG/2 ML VIAL ONE (06:38)
[2021-12-09] MEDS ORDERED: Famotidine/PF 20 mg/2ml Vial ONE (06:38)
[2021-12-09] MEDS ORDERED: Vecuronium 10 MG VIAL ONE ×2 (06:38→06:59)
[2021-12-09] MEDS ORDERED: Fentanyl 250 MCG/5 ML VIAL ONE (06:39)
[2021-12-09] MEDS ORDERED: Morphine 2 MG/ML VIAL SLOW IVP PRN (06:43)
[2021-12-09] MEDS ORDERED: Ondansetron PF 4 MG/2 ML Vial IVP PRN (06:43)
[2021-12-09] MEDS ORDERED: Acetaminophen 325 MG TAB PO PRN (06:43)
[2021-12-09] MEDS ORDERED: diphenhydrAMINE 50 MG/ML VIAL IVP PRN (06:43)
[2021-12-09] MEDS ORDERED: Cyclobenzaprine 10 MG TAB PO PRN (06:43)
[2021-12-09] MEDS ORDERED: HYDROcodone/Acetaminophen 10/325 mg Tablet PO PRN (06:43)
[2021-12-09] MEDS ORDERED: Promethazine HCl 25 MG/ML VIAL IM PRN ×2 (06:43→13:30)
[2021-12-09] MEDS ORDERED: HYDROcodone/Acetaminophen 7.5/325 mg Tablet PO PRN (06:43)
[2021-12-09] MEDS ORDERED: Bisacodyl 10 MG SUPP PR PRN (06:43)
[2021-12-09] MEDS ORDERED: Milk Of Magnesia 30 ML UDCUP PO PRN (06:43)
[2021-12-09] MEDS ORDERED: Acetaminophen/Codeine 30-300mg Tablet PO PRN (06:43)
[2021-12-09] MEDS ORDERED: Sodium Chloride 0.9% 1,000 ML IV SCH (06:45)
[2021-12-09] MEDS ORDERED: ePHEDrine 50 MG/ML VIAL ONE (06:59)
[2021-12-09] MEDS ORDERED: PHENYLEPHRINE-NS 100 MCG/ML 10 ML SYRINGE ONE (06:59)
[2021-12-09] MEDS ORDERED: PROPOFOL 200 MG/20 ML VIAL ONE (06:59)
[2021-12-09] MEDS ORDERED: Dexamethasone 20 MG/5 ML VIAL ONE (06:59)
[2021-12-09] MEDS ORDERED: Rocuronium Bromide 10 MG/ML (10ML VIAL) ONE (06:59)
[2021-12-09] MEDS ORDERED: Lidocaine 1% PF 5 ML VIAL ONE (06:59)
[2021-12-09] MEDS ORDERED: Morphine 4 MG/ML VIAL SLOW IVP PRN (07:09)
[2021-12-09] MEDS ORDERED: Ondansetron HCl/PF 4 MG/2 ML Vial IVP PRN (13:30)
[2021-12-09] MEDS ORDERED: Promethazine HCl 25 MG/ML VIAL IVPB PRN (13:30)
[2021-12-09] MEDS ORDERED: ceFAZolin 2 GM/Dextrose 50 ML 2 GM in Premix Bag 1 BAG IVPB SCH (14:00)
[2021-12-09] MEDS ORDERED: Fentanyl 100 MCG/2 ML VIAL ONE (14:07)
[2021-12-09] MEDS: Sodium Chloride 0.9% 1,000 ML IV SCH ×2 (15:50→20:41)
[2021-12-09] MEDS: ceFAZolin 2 GM/Dextrose 50 ML 2 GM in Premix Bag 1 BAG IVPB SCH (18:38)
[2021-12-09] MEDS ORDERED: diphenhydrAMINE 25 MG CAP PO PRN (18:47)
[2021-12-09] MEDS: Atorvastatin Calcium 40 MG TAB PO SCH (20:40)
[2021-12-10] MEDS: ceFAZolin 2 GM/Dextrose 50 ML 2 GM in Premix Bag 1 BAG IVPB SCH (04:53)
[2021-12-10 06:20] LABS: Anion Gap 11 mmol/L (10-20); BUN (Urea Nitrogen) 10 mg/dL (8.4-25.7); Calc. Creatinine Clearance 78 mL/min (70-130); Calcium 7.9 mg/dL (7.8-10.44); Carbon Dioxide 24 mmol/L (23-31); Chloride 104 mmol/L (98-107); Glucose 92 mg/dL (83-110); Potassium 3.8 mmol/L (3.5-5.1); Sodium 135 mmol/L (136-145)
[2021-12-10 06:38] LABS: #Basophils 0.1 thou/uL (0.0-0.2); #Eosinphils 0.2 thou/uL (0.0-0.7); #Lymphocytes 1.8 thou/uL (1.20-3.40); #Monocytes 0.8 thou/uL (0.11-0.59); #Neutrophils 10.8 thou/uL (1.40-6.50); %Basophils 0.5 % (0.0-1.0); %Eosinophils 1.2 % (0.0-10.0); %Lymphocytes 13.3 % (21.0-51.0); %Monocytes 6.1 % (0.0-10.0); %Neutrophils 78.9 % (42.0-75.0); Hemoglobin 9.4 g/dL (14.0-18.0); Mean Corpuscular HGB CONC 31.1 g/dL (32.0-36.0); Mean Corpuscular Hemoglobin 28.6 pg (27.0-31.0); Mean Corpuscular Volume 91.9 fL (78.0-98.0); Mean Platelet Volume 7.6 fL (7.4-10.4); Platelet Count 241 thou/uL (130-400); RBC Distribution Width 13.1 % (11.5-14.5); Red Blood Cell (RBC) Count 3.29 mill/uL (4.70-6.10); White Blood Cell (WBC) Count 13.7 thou/uL (4.8-10.8)
[2021-12-10] MEDS: Ferrous Sulfate 325 MG TAB PO SCH ×2 (09:16→17:16)
[2021-12-10] MEDS: Magnesium Oxide 400 MG TAB PO SCH (09:17)
[2021-12-10] MEDS: Sodium Chloride 0.9% 1,000 ML IV SCH ×2 (15:12→22:31)
[2021-12-10] MEDS: Atorvastatin Calcium 40 MG TAB PO SCH (20:23)
[2021-12-11] MEDS: Magnesium Oxide 400 MG TAB PO SCH (08:23)
[2021-12-11] MEDS: Ferrous Sulfate 325 MG TAB PO SCH ×2 (08:23→16:26)
[2021-12-11] MEDS: Sodium Chloride 0.9% 1,000 ML IV SCH (11:58)
[2021-12-11] MEDS: Atorvastatin Calcium 40 MG TAB PO SCH (19:44)
[2021-12-12] MEDS: Sodium Chloride 0.9% 1,000 ML IV SCH ×2 (00:01→18:01)
[2021-12-12] MEDS ORDERED: Albuterol 200 PUFF (6.7GM INHALER) INH PRN (06:38)
[2021-12-12] MEDS: Ferrous Sulfate 325 MG TAB PO SCH ×2 (09:30→16:38)
[2021-12-12] MEDS: Magnesium Oxide 400 MG TAB PO SCH (09:30)
[2021-12-12] MEDS ORDERED: Saccharomyces boulardii 250 MG CAP PO SCH (14:30)
[2021-12-12] MEDS: Atorvastatin Calcium 40 MG TAB PO SCH (20:54)
[2021-12-13] MEDS: Sodium Chloride 0.9% 1,000 ML IV SCH ×2 (04:44→18:54)
[2021-12-13] MEDS: Saccharomyces boulardii 250 MG CAP PO SCH (09:04)
[2021-12-13] MEDS: Ferrous Sulfate 325 MG TAB PO SCH ×2 (09:04→18:54)
[2021-12-13] MEDS: Magnesium Oxide 400 MG TAB PO SCH (09:04)
[2021-12-13 13:08] LABS: SARS-CoV-2 NAA Rapid Test Not Detected (NotDetected)
[2021-12-13] MEDS: Atorvastatin Calcium 40 MG TAB PO SCH (20:54)
[2021-12-14] MEDS: Sodium Chloride 0.9% 1,000 ML IV SCH (08:17)
[2021-12-14] MEDS: Saccharomyces boulardii 250 MG CAP PO SCH (09:20)
[2021-12-14] MEDS: Magnesium Oxide 400 MG TAB PO SCH (09:21)
[2021-12-14] MEDS: Ferrous Sulfate 325 MG TAB PO SCH (09:21)
[2021-12-14 09:34] VITALS: TEMP 98.2
[2021-12-14 11:11] LABS: #Eosinphils 0.9 thou/uL (0.0-0.7); #Monocytes 0.6 thou/uL (0.11-0.59); #Neutrophils 12.1 thou/uL (1.40-6.50); %Basophils 0.2 % (0.0-1.0); %Eosinophils 6.2 % (0.0-10.0); %Lymphocytes 6.7 % (21.0-51.0); %Neutrophils 82.9 % (42.0-75.0); Hemoglobin 11.6 g/dL (14.0-18.0); Mean Corpuscular HGB CONC 33.1 g/dL (32.0-36.0); Mean Corpuscular Volume 87.8 fL (78.0-98.0); Platelet Count 303 thou/uL (130-400); White Blood Cell (WBC) Count 14.6 thou/uL (4.8-10.8)
[2021-12-14 11:23] LABS: Anion Gap 11 mmol/L (10-20); BUN (Urea Nitrogen) 9 mg/dL (8.4-25.7); Calc. Creatinine Clearance 87 mL/min (70-130); Calcium 8.3 mg/dL (7.8-10.44); Carbon Dioxide 26 mmol/L (23-31); Chloride 103 mmol/L (98-107); Glucose 109 mg/dL (83-110); Potassium 3.7 mmol/L (3.5-5.1); Sodium 136 mmol/L (136-145)
[2021-12-14 12:43] VITALS: BP 156/81
== END 2021-12-14 14:50 | disposition home or self-care (01) | DRG 453 ==
LOC: EDSTATUS 13:15 → SURG A 12-09 05:30
PROVIDERS: ADMIT Neurological Surgery; ATTEND Internal Medicine
PROC: 0SG00AJ Fusion of Lumbar Vertebral Joint with Interbody Fusion Device, Posterior Approach, Anterior Column, Open Approach (ICD-10-PCS; principal; 2021-12-09)
PROC: 0SG1071 Fusion of 2 or more Lumbar Vertebral Joints with Autologous Tissue Substitute, Posterior Approach, Posterior Column, Open Approach (ICD-10-PCS; 2021-12-09)
PROC: 0SB20ZZ Excision of Lumbar Vertebral Disc, Open Approach (ICD-10-PCS; 2021-12-09)
PROC: 01NB0ZZ Release Lumbar Nerve, Open Approach (ICD-10-PCS; 2021-12-09)
PROC: 0SP004Z Removal of Internal Fixation Device from Lumbar Vertebral Joint, Open Approach (ICD-10-PCS; 2021-12-09)
PROC: 0SP304Z Removal of Internal Fixation Device from Lumbosacral Joint, Open Approach (ICD-10-PCS; 2021-12-09)
DX: M48.061 Spinal stenosis, lumbar region without neurogenic claudication (principal); J18.9 Pneumonia, unspecified organism; Z20.822 Contact with and (suspected) exposure to COVID-19; M54.16 Radiculopathy, lumbar region; K22.70 Barrett's esophagus without dysplasia; K21.00 Gastro-esophageal reflux disease with esophagitis, without bleeding; E78.5 Hyperlipidemia, unspecified; K21.9 Gastro-esophageal reflux disease without esophagitis; M19.90 Unspecified osteoarthritis, unspecified site; G89.29 Other chronic pain; M51.36 Other intervertebral disc degeneration, lumbar region; M51.26 Other intervertebral disc displacement, lumbar region; I10 Essential (primary) hypertension; I25.10 Atherosclerotic heart disease of native coronary artery without angina pectoris; D64.9 Anemia, unspecified; Z98.1 Arthrodesis status; Z95.1 Presence of aortocoronary bypass graft; Z90.49 Acquired absence of other specified parts of digestive tract; Z98.84 Bariatric surgery status; Z80.3 Family history of malignant neoplasm of breast; Z79.899 Other long term (current) drug therapy; Z88.6 Allergy status to analgesic agent; Z87.11 Personal history of peptic ulcer disease; Z01.818 Encounter for other preprocedural examination
CPT/HCPCS: 36415; 71045; 76000; 80048; 85025; 85027; 85610; 85730; 86850; 86900; 86901; 93005; 93970; C1713; C1768; C1776; J0171; J0690; J1100; J2704; J3010; J3370; J3490; P9045; S0020; S0028; U0002; U0003; U0005

== ENCOUNTER 2021-12-14 15:36 | Emergency (ER) | payer OTHER ==
[2021-12-14 16:59] LABS: Hemoglobin 12.8 g/dL (14.0-18.0); Mean Corpuscular Hemoglobin 28.8 pg (27.0-31.0); Mean Corpuscular Volume 89.9 fL (78.0-98.0); Mean Platelet Volume 7.7 fL (7.4-10.4); Platelet Count 356 thou/uL (130-400); Red Blood Cell (RBC) Count 4.43 mill/uL (4.70-6.10); White Blood Cell (WBC) Count 20.5 thou/uL (4.8-10.8)
[2021-12-14 17:11] LABS: INR-International Normal Ratio 1.2; PTT 51.4 sec (22.9-36.1); Prothrombin Time 15.5 sec (12.0-14.7)
[2021-12-14] MEDS ORDERED: Lidocaine 1% PF 5 ML VIAL ONE (17:12)
[2021-12-14 17:19] LABS: ALT (SGPT) 12 U/L (8-55); AST (SGOT) 22 U/L (5-34); Albumin 3.1 g/dL (3.4-4.8); Alkaline Phosphatase 85 U/L (40-110); Anion Gap 15 mmol/L (10-20); BUN (Urea Nitrogen) 9 mg/dL (8.4-25.7); Calc. Creatinine Clearance 0 mL/min (70-130); Calcium 8.7 mg/dL (7.8-10.44); Carbon Dioxide 21 mmol/L (23-31); Chloride 102 mmol/L (98-107); Globulin 3.3 g/dL (2.4-3.5); Glucose 125 mg/dL (83-110); Potassium 3.8 mmol/L (3.5-5.1); Protein, Total 6.4 g/dL (5.8-8.1); Sodium 134 mmol/L (136-145)
[2021-12-14 17:21] LABS: Band 14 % (5-11); Lymphocytes 3 % (21-51); MDiff Complete? YES; Monocytes 7 % (0-10); Neutrophil 73 % (42-75); Platelet Morphology Comment Appears Adequate; RBC Morphology Normal; Reactive Lymphocytes 3 % (0-10)
== END 2021-12-14 19:00 | disposition home or self-care (01) ==
LOC: ERS 15:36
DX: S32.039A Unspecified fracture of third lumbar vertebra, initial encounter for closed fracture (principal); S01.01XA Laceration without foreign body of scalp, initial encounter; I25.2 Old myocardial infarction; K21.9 Gastro-esophageal reflux disease without esophagitis; D64.9 Anemia, unspecified; V47.5XXA Car driver injured in collision with fixed or stationary object in traffic accident, initial encounter
CPT/HCPCS: 12002; 36415; 70450; 71045; 72131; 85610; 85730